=== PATIENT | male | born 1980 | race African-American/Black ===

== ENCOUNTER 2023-09-04 23:00 | Emergency (ER) | payer OTHER, SELFPAY ==
[2023-09-05] MEDS ORDERED: Ketorolac Tromethamine 30 MG (1 mL) VIAL ONE (00:50)
== END 2023-09-05 01:00 | disposition home or self-care (01) ==
LOC: CSHERS 23:00
DX: B35.3 Tinea pedis (principal)
CPT/HCPCS: 96372; 99283; J1885